=== PATIENT | female | born 1980 ===

== ENCOUNTER → 2018-10-21 22:11 | Outpatient (REF) | payer OTHER, SELFPAY ==
[2018-10-21 23:36] LABS: Add Manual Diff / Slide Review NO; Basophils Absolute Auto 0 /uL (0-100); Basophils Percent Auto 0.7 % (0-2); Eosinophils Absolute Auto 100 /uL (0-450); Eosinophils Percent Auto 1.6 % (2-4); Hematocrit 39.6 % (36-46); Hemoglobin 13.3 g/dL (12.0-16.0); Lymphocytes Absolute Auto 1500 /uL (1100-4500); Lymphocytes Percent Auto 20.9 % (25-40); Mean Corpuscular HGB Conc 33.6 % (30-36); Mean Corpuscular Hemoglobin 29.9 PG (26-34); Mean Corpuscular Volume 88.9 fL (80-100); Monocytes Absolute Auto 500 /uL (0-900); Monocytes Percent Auto 7.2 % (3-14); Neutrophils Absolute Auto 4900 /uL (1500-7000); Neutrophils Percent Auto 69.6 % (50-75); Platelet Count 348 X10^3/uL (150-400); Red Blood Cell Count 4.45 X10^6/uL (4.0-5.2); Red Cell Distribution Width 12.3 % (11.6-14.8)
[2018-10-22 02:44] LABS: Ferritin 55.6 ng/mL (6.27-137)
== END ==
LOC: LAB 22:11
PROVIDERS: Visit Provider Naturopath
DX: E61.1 Iron deficiency (principal); R45.1 Restlessness and agitation; G47.00 Insomnia, unspecified; F43.23 Adjustment disorder with mixed anxiety and depressed mood
CPT/HCPCS: 36415; 82728; 85025